=== PATIENT | female | born 1985 | race Caucasian/White ===

== ENCOUNTER 2022-04-15 19:13 | Outpatient (CLI) | payer OTHER, BC, SELFPAY ==
--- OUTSIDE RECORDS SUMMARY | 2022-05-01 11:58 | XMS_ITS | Clinical Summary ---
:1985 Author Organization [facility] [place] [address] Care Team Providers Name Role Phone Margo Mcdowell Primary Care Provider Allergies No known active [...] Orders Only Scanner <No scans attac hed> from Last 3 Months Immunizations Name Administration [...] SAB Ectopic Multiple Living Live Births 1 Date Outcome GA Total Labor/2nd/3rd Weight [...] 01/17/2022 9:19 AM CDT Plan of Treatment Upcoming Encounters Date Type Specialty Care Team Description 05/08/2022 Preop Visit Andreia Da Silva Ma, PA [address] [id number] (Wo rk) Health Maintenance Due Date Last Done Comments [...] wt on same day) for 01/17/2023 01/17/2022, 10/01/2020, age 18+ 03/31/2020, Additional history exists Tdap [...] Type Group [employer] OF [id number] 2018-Present [address] [address] [place] [address] Care Teams Strategic Debriefing Officer Relationship Specialty Start Date End Date Margo Mcdowell DO PCP - General Family Practice 08/10/[address] [place] [address]
== END 2022-04-15 19:14 | disposition home or self-care (01) ==
LOC: AMB 05-01 11:56
PROVIDERS: Visit Provider Emergency Medicine Emergency Medical Services
DX: S49.92XA Unspecified injury of left shoulder and upper arm, initial encounter (principal); S29.9XXA Unspecified injury of thorax, initial encounter; V59.49XA Driver of pick-up truck or van injured in collision with other motor vehicles in traffic accident, initial encounter; Y92.415 Exit ramp or entrance ramp of street or highway as the place of occurrence of the external cause
CPT/HCPCS: A0998

== ENCOUNTER 2022-04-15 19:47 | Emergency (ER) | payer OTHER, BC, SELFPAY ==
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
[2022-04-15 20:03] VITALS: BP 137/90; PULSE 99; RESP 16; TEMP 36.6; O2SAT 95; BMI 43.9
--- OUTSIDE RECORDS SUMMARY | 2022-04-15 20:28 | XMS_ITS | Clinical Summary ---
:1985 Author Organization [facility] [place] [address] Care Team Providers Name Role Phone Margo Mcdowell DO Primary Care Provider Allergies No known active allergies Medications Medication Sig Dispensed Refills Start Date End Date Status SUMAtriptan (IMITREX) Take 1 tablet at 12 Tablet 5 01/17/2022 Active 50 mg the first sign of tabletIndications: a headache. May Migraine with aura, repeat every 2 not intractable, hours for a without status maximum of 4 doses migrainosus in 24 hours (max 200 mg/24 hours) Active Problems Problem Noted Date Migraine with aura, not intractable, without status mi grainosus 01/17/2022 Body mass index (BMI) of 50.0 to 59.9 in adult 020 Viral warts, unspecified 10/25/2010 Vitamin D deficiency 03/29/2010 Resolved Problems Problem Noted Date Resolved Date Supervision of normal first 04/26/2010 Encounters Date Type Specialty Care Team Description 01/29/2022 Orders Only Scanner <No scans attac hed> 01/25/2022 Telephone Andreia Da Silva PA Prio r Authorization (semaglutide (O ZEMPIC) 2 mg/1.5 mL (0.25 mg or 0.5mg doses) pen ORA ED) 01/19/2022 Telephone Andreia Da Silva PA Prio r Authorization (SUMAtriptan (I MITREX) 50 mg tablet NOT NEED ED) 01/19/2022 Telephone Margo Mcdowell DO Prio r Authorization (Imitrex) 01/17/2022 Office Visit Andreia Da Silva PA Cons ult (Discuss options-wants a tubal/ablation/ hysterectomy- done having kid s and periods are heavy-possi ble referral) 01/17/2022 Telephone Margo Mcdowell DO Refi ll Request; [facility] 01/17/2022 Refill Margo Mcdowell DO Refi ll Request 01/17/2022 Travel from Last 3 Months Immunizations Name Administration Dates Next Due Hepatitis B, Unspecified 11/16/1998, 08/25/1998, 06/21/1998 Influenza, IIV3 (Age >=3 years) 06/01/2013 Influenza, IIV4 05/25/2019 Td (Age >=7 Years) 01/27/2005 Tdap 07/15/2012 Family History Medical History Relation Name Comments Good Health Brother Good Health Father Migraines Mother Heart Disease No Family History Relation Name Status Comments Brother Father Mother Social History Tobacco Use Types Packs/Day Years Used Date Former Smoker Quit: 03/28/20 10 Smokeless Tobacco: Never Used Tobacco Cessation: Counseling Given: Yes Alcohol Use Standard Drinks/Week Comments Yes 0 (1 standard drink = 0.6 oz pure alcoho l) occ Alcohol Habits Answer Date Recorded How often do you have a drink containing alcohol? Not asked How many drinks containing alcohol do you have on a typical Not asked day when you are drinking? How often do you have six or more drinks on one occasion? No t asked Comment: occ 05/06/2018 Sex Assigned at Date Recorded Not on file Obstetrics History Para Term AB IAB SAB Ectopic Multiple Living Live Births 1 1 1 1 1 Date Outcome GA Total Labor/2nd/3rd Weight Sex Delivery Anes PTL Yolanda A 1 A5 Name Clin Labor Term 41w Roxy Jacen 0d ng t Last Filed Vital Signs Vital Sign Reading Time Taken Comments Blood Pressure 126/82 01/17/2022 9:19 AM CDT Pulse 98 01/17/2022 9:19 AM CDT Temperature 36.7 ??C (98 ??F) 05/01/2019 8:06 AM CDT Respiratory Rate 18 01/09/2007 10:00 AM CDT Oxygen Saturation 100% 01/17/2022 9:19 AM CDT Inhaled Oxygen Concentration - - Weight 135.2 kg (298 lb) 01/17/2022 9:19 AM CDT Height 172.7 cm (5' 8) 01/17/2022 9:19 AM CDT Body Mass Index 45.31 01/17/2022 9:19 AM CDT Plan of Treatment Health Maintenance Due Date Last Done Comments COVID-19 vaccine series (#1) 1985 Hepatitis C screening for age 0803/22/2005 18-79 Depression screening for age 12+ 03/29/2022 03/29/2021, , 03/31/2020, Additional history exists Influenza for age 9-49 04/12/2022 05/25/2019, 06/01/2013 Tetanus booster 07/15/2022 07/15/2012, 01/27/2005 Pap test for age 21-65 10/06/2022 10/06/2019, 10/06/2019, 01/18/2011, Additional history exists BMI (ht and wt on same day) for 01/17/2023 01/17/2022, 01/2020, age 18+ 03/31/2020, Additional history exists Tdap Completed 07/15/2012 Procedures Procedure Name Priority Date/Time Associated Diagnosis Comme nts SCAN-ULTRASOUND 01/29/2022 12:00 AM Resul ts for this REPORT CDT procedure are i n the results section. from Last 3 Months Results SCAN-ULTRASOUND REPORT (01/29/2022 12:00 AM CDT) Narrative This result has an attachment that is no t available. Scanner OTHER from Last 3 Months Insurance Payer Benefit Plan / Subscriber ID Effective Dates Phone Addre ss Type Group [employer] OF [id number] 2018-Present [address] [address] [place] [address] Care Teams Pull Socket Assembler Relationship Specialty Start Date End Date Margo Mcdowell, PCP - General Family Practice 08/10/13 [address] [place] [address]
[2022-04-15] MEDS: IBUPROFEN 400 MG TABLET 600 MG PO (20:30)
[2022-04-15 20:39] LABS: Chloride* 103 mmol/L (96-114)
[2022-04-15 20:40] LABS: Potassium* 3.7 mmol/L (3.6-5.1); Sodium* 138 mmol/L (135-149)
[2022-04-15 20:42] LABS: Creatinine* 0.8 mg/dL (0.5-1.5); Est. Creatinine Clearance* 95.45; Estimated Glomerular Filt Rate 98 ml/min
[2022-04-15 20:43] LABS: Blood Urea Nitrogen* 15 mg/dL (5-24); Calcium* 8.9 mg/dL (8.4-10.6); Carbon Dioxide* 27 mmol/L (20-32); Glucose* 101 mg/dL (60-115); Magnesium* 1.8 mg/dL (1.5-2.6)
[2022-04-15 20:56] LABS: Troponin I* < 0.01 ng/mL (0.01-0.04)
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
[2022-04-15 22:24] VITALS: PULSE 98
== END 2022-04-15 22:24 | disposition home or self-care (01) ==
PROVIDERS: Emergency Provider Family Medicine
DX: S29.012A Strain of muscle and tendon of back wall of thorax, initial encounter (principal); S20.219A Contusion of unspecified front wall of thorax, initial encounter; V43.52XA Car driver injured in collision with other type car in traffic accident, initial encounter; I49.3 Ventricular premature depolarization
CPT/HCPCS: 36415; 71046; 80048; 83735; 84484; 93005; 99284; 99285; A9270

== ENCOUNTER 2022-05-15 09:34 | Day surgery (SDC) | payer BC, SELFPAY ==
[2022-05-15] VITALS (13 sets, daily range): BP systolic 94–122; BP diastolic 64–86; PULSE 63–124; RESP 16–18; TEMP 36.4–36.6; O2SAT 92–99; BMI 48.3
[2022-05-15] MEDS: LACTATED RINGERS 1000 ML 1,000 ML 100 ML IV ×2 (09:30→12:30)
[2022-05-15 10:10] LABS: Hemoglobin* 14.3 gm/dL (12.0-16.0)
[2022-05-15 10:12] LABS: Ur HCG Qualitative* Negative (Negative)
--- NOTE | 2022-05-15 11:02 | P.PCN_ITS ---
Procedure Note Time Seen by Provider: 11:02 Date Seen: 05/15/22 Date of procedure: 05/15/22 Will [facility] bill your pro fee for this procedure?: Yes Procedure Description: Preoperative diagnosis: 37 yo * Menorrhagia * Undesired fertility Postoperative diagnosis: Same. Procedure: Hysteroscopy, dilation and curettage, endometrial ablation. Laparoscopic bilateral salpingectomy Anesthesia: General endotracheal and paracervical block. Surgeon: Perlita Grady MD Assist: Lore Aly MD for laparoscopic portion of the procedure. Estimated blood loss: [] mL IV Fluid: [] mL Specimen: Endometrial curettings and bilateral fallopian tubes, to pathology. Findings: On exam under anesthesia: The cervix and vagina appear normal. The uterus was [] position, approximately [] week size, mobile and without masses or nodularity palpable. Adnexa were without mass or fullness palpable bilaterally. On hysteroscopy: []. No other abnormalities noted. The uterus sounded to [] cm. Cervical length [] cm. Cavity length: []. Procedure: Marie was taken to the operating room where conscious sedation was found to be adequate. She was placed in a dorsal lithotomy position and an exam under anesthesia was performed with the findings stated above. She was then prepped and draped in a normal sterile manner. An a bivalve is sterile speculum was placed in the vaginal canal. A paracervical block was placed using 0.5% Marcaine: 5 mL were injected at the 4 and 8 o'clock positions on the cervix. A long Allis clamp was placed on the anterior lip of the cervix. The cervix was then dilated to Hegar 6. Uterus sounded to [] cm. The cervix measured [] cm. There for the cavity length was [] cm. The Truclear hysteroscope was advanced into the uterus. A diagnostic hysteroscopy performed with normal saline as the insufflation medium. Findings are stated above. The Truclear incisor was then advanced into the camera. And the curettage performed with this incisor. The curettage took approximately [] min. The cavity appeared normal once the curettage was performed completed. The hysteroscope was removed. The cervix was then dilated to Hegar 8. The Lesly device was advanced into the uterus. The cavity check was completed and the ablation took place over 2 min. . The Lesly was removed, the hysteroscope readvanced to document ablation of the entire cavity. The hysteroscope was then removed. The Allis clamp removed from the anterior lip of the cervix. [] was used to obtain hemostasis Attention was then directed to performing the laparoscopic portion of the procedure: A paracervical block was placed using 0.5% Marcaine: 5 mL were injected at the 4 and 8 o'clock positions on the cervix. All incisions were injected with 0.5% Marcaine prior to incision. A vertical 5 mm infraumbilical, incision, was made and a 5 mm trocar placed under direct visualization with the laparoscope. The abdomen was then insufflated with carbon dioxide gas to a pressure of 15 mm of mercury. To bilateral lower quadrant trocars were then placed under direct visualization. Both were placed approximately 3-4 finger breaths medial to the ischial crests. The right trocar was 5 mm the left trocar was 11 mm. A diagnostic laparoscopy was then performed with findings stated above. The left fallopian tube was grasped with a sliding grasper. The left fallopian tube was removed from the broad ligament using the Halo dissecting forceps starting at the fimbriated end of the tube. Sequential pedicles were then formed to the level of the cornua. The tube was then removed at the cornua and removed from the abdomen through the 11 mm port. The right fallopian tube was removed in a similar manner. Excellent hemostasis was noted of all pedicles. The trocars were then removed under direct visualization. The CO2 gas was allowed to escape the infraumbilical port prior to its removal. All incisions were reapproximated using 4-0 Monocryl in a running subcuticular manner. Exofin skin adhesive was then applied and adhesive dressings applied over each incision. The uterine manipulator and March catheter were removed. The patient tolerated this procedure well. Sponge, lap and instrument counts were correct x2 at the end of the procedure and the patient was taken to the recovery area in stable condition. Patient received 30 mg of Toradol IV and 3 gm of Ancef prior to the procedure. Surgeon: Perlita Grady MD
[2022-05-15] MEDS: CEFAZOLIN 1 GM inj 3 GM IVP (11:20)
[2022-05-15] MEDS: BUPIVACAINE 0.5% 30 ML INJECTION (12:10)
--- NOTE | 2022-05-15 12:52 | W.PM.GYNPROC ---
Procedure Note Date Seen: 05/15/22 Procedure Details: PREOPERATIVE DIAGNOSIS: 1. Menorrhagia. 2. Undesired fertility. POSTOPERATIVE DIAGNOSIS: 1. Menorrhagia. 2. Undesired fertility. 3. Endometriosis. 4. Pelvic adhesions. PROCEDURE: Laparoscopy, bilateral salpingectomies, lysis of adhesions, biopsy and fulguration of endometriosis. SURGEON: Miguel A. RADIOGRAPHER TECHNOLOGIST: Sheeba ANESTHESIA: General endotracheal COMPLICATIONS: None ESTIMATED BLOOD LOSS: See operative report by Dr. Grady. FINDINGS: PROCEDURE NOTE: Please see the operative report by Dr. Grady for full details of the procedure. I was asked to assist with the laparoscopic portion of the procedure (after she finished hysteroscopy, D&C, endometrial ablation). I was scrubbed in for the entire laparoscopic procedure. I provided assistance with laparoscopic port placement, lysis of adhesions, visualization and retraction, and with the bilateral salpingectomies and biopsy and fulguration from the right side. The procedure was difficult due to patient body habitus (BMI 48 kg/m2).
--- NOTE | 2022-05-15 13:01 | PM.PROC ---
Procedure Note Date Seen: 05/15/22 Date of procedure: 05/15/22 Will [facility] bill your pro fee for this procedure?: Yes Procedure: Preoperative diagnosis: 37yo with:1. menorrhagia. 2. Undesired fertility. Postoperative diagnosis: Same: Suspected endometrial polyps, ventral wall hernia, stage 1 endometriosis. Procedure: 1. Hysteroscopy, dilation and curettage, endometrial ablation. 2. Laparoscopy: Lysis of adhesions, bilateral salpingectomy, right uterosacral ligament peritoneal biopsy, fulguration of endometriosis. Anesthesia: General endotracheal and local. Surgeon: Perlita Grady MD Assist: Lore Aly MD for the laparoscopic portion the procedure. Estimated blood loss: mL IV Fluid: mL Specimen: Endometrial curettings, sent to path. Findings: On exam under anesthesia: The cervix and vagina appear normal. The uterus was anteverted position, approximately 12 week size, mobile and without masses or nodularity palpable. Adnexa were without mass or fullness palpable bilaterally. On hysteroscopy: multiple polypoid masses with otherwise normal endometrium. No other abnormalities noted. The uterus sounded to 11.5 cm. Cervical length 5 cm. Cavity length: 6.5 cm The round ligament was adherent to the anterior abdominal wall just left of the umbilicus in a small ventral wall hernia. There is also small amount of omentum within this ventral abdominal wall hernia. The bladder was adherent to the anterior lower uterine segment with multiple thin adhesions. There were 5 endometriosis implants in the posterior cul-de-sac. Three on the right uterosacral ligament and to on the left uterosacral ligament. One of the right utero-sacra implants was biopsied. The liver edge appeared normal. The gallbladder was was surgically absent. The appendix was not visualized. Procedure: Marie was taken to the operating room where conscious sedation was found to be adequate. She was placed in a dorsal lithotomy position and an exam under anesthesia was performed with the findings stated above. She was then prepped and draped in a normal sterile manner. An a bivalve is sterile speculum was placed in the vaginal canal. A paracervical block was placed using 0.5% Marcaine: 5 mL were injected at the 4 and 8 o'clock positions on the cervix. A single toothed tenaculum was placed on the anterior lip of the cervix. The cervix was then dilated to Hegar 6. Uterus sounded to 11.5 cm. The cervix measured 5 cm. There for the cavity length was 6.5 cm. The Truclear hysteroscope was advanced into the uterus. A diagnostic hysteroscopy performed with normal saline as the insufflation medium. Findings are stated above. The Truclear incisor was then advanced into the camera. And the curettage performed with this incisor. The curettage took approximately 3min. The cavity appeared normal once the curettage was performed completed. Saline was used for the insufflation medium. Total saline used: 1175 mL. Deficit: 375 mL The hysteroscope was removed. The cervix was then dilated to Hegar 8. The Lesly device was advanced into the uterus. The cavity check was completed and the ablation took place over 2 min. Patient received 30 mg of Toradol IV and gm of Ancef prior to the procedure. The Lesly was removed, the hysteroscope readvanced to document ablation of the entire cavity. The hysteroscope was then removed. A [employer] uterine manipulator was then placed. Attention was then turned to performing the laparoscopic portion of the procedure. All incisions were injected with 0.5% Marcaine prior to incision. A vertical 5 mm infraumbilical, incision, was made and a 5 mm trocar placed under direct visualization with the laparoscope. The abdomen was then insufflated with carbon dioxide gas to a pressure of 15 mm of mercury. To bilateral lower quadrant trocars were then placed under direct visualization. Both were placed approximately 3-4 finger breaths medial to the ischial crests. The right trocar was 5 mm the left trocar was 11 mm. A diagnostic laparoscopy was then performed with findings stated above. The lateral edge of the round ligament was cold superior and in to the small, abdominal ventral wall hernia that was left of the umbilicus. The camera was placed in the lower right trocar to visualize adhesions of the round ligament and omentum that were going into the hernia. These adhesions were taken down with the bipolar LigaSure forceps. No bleeding was noted. Attention was then return to the pelvis where the thin adhesions of the bladder to the anterior uterine wall were removed using the LigaSure forceps. Attention was then turned to performing the bilateral salpingectomy. Before the salpingectomy could be performed a midline 5 mm trocar was placed to aid and holding the uterus anteriorly. The left fallopian tube was grasped with a sliding grasper. The left fallopian tube was removed from the broad ligament using the Halo dissecting forceps starting at the fimbriated end of the tube. Sequential pedicles were then formed to the level of the cornua. The tube was then removed at the cornua and removed from the abdomen through the 11 mm port. The right fallopian tube was removed in a similar manner. Excellent hemostasis was noted of all pedicles. The trocars were then removed under direct visualization. Attention was then turned to the endometriosis implants in the posterior cul-de-sac. 1 of the endometriosis implants on the right uterosacral ligament was grasped with a sliding forceps an the implant removed using laparoscopic scissors. The remaining endometriosis implants were cauterized with bipolar cautery via a [place] laparoscopic grasper. The pelvis was irrigated with a small amount of fluid and hemostasis noted. The left lower quadrant trocar was removed and the fascia reapproximated using the Nitin -Thomasen fascial closure device. The remaining trocars were removed under direct visualization. The CO2 gas was allowed to escape the infraumbilical port prior to its removal. All incisions were reapproximated using 4-0 Monocryl in a running subcuticular manner. Exofin skin adhesive was then applied and adhesive dressings applied over each incision. The Hul[employer] uterine manipulator was removed. Nothing was needed to obtain hemostasis on the cervix. The March catheter was removed. The patient tolerated this procedure well. Sponge, lap and instrument counts were correct x2 at the end of the procedure and the patient was taken to the recovery area in stable condition. The patient received 30 mg IV Toradol and 3 g IV Ancef prior to the start of the procedure. Surgeon: Perlita Grady MD
[2022-05-15] MEDS: fentaNYL 100 MCG/2 ML inj 50 MCG IVP ×2 (13:07→13:26)
--- NOTE | 2022-05-15 13:11 | W.ANESCHARGE ---
Anesthesia Charges Start Date/Time Anesthesia Start Date: 05/15/22 Anesthesia Start Time: 11:09 Stop Date/Time Anesthesia Stop Date: 05/15/22 Anesthesia Stop Time: 13:05 Summary Emergency: No
--- NOTE | 2022-05-15 13:30 | W.ANESCHARGE ---
Anesthesia Charges Start Date/Time Anesthesia Start Date: 05/15/22 Anesthesia Start Time: 11:09 Stop Date/Time Anesthesia Stop Date: 05/15/22 Anesthesia Stop Time: 13:05 Summary Emergency: No
[2022-05-15] MEDS: ACETAMINOPHEN 500 MG TABLET 1000 MG PO (13:51)
== END 2022-05-15 14:45 | disposition home or self-care (01) ==
PROVIDERS: PCP Physician Assistant; Visit Provider Obstetrics & Gynecology
PROC: 0UF98ZZ Fragmentation in Uterus, Via Natural or Artificial Opening Endoscopic (ICD-10-PCS; CPT 58661; principal; 2022-05-15 10:30)
PROC: (CPT 58661; 2022-05-15 10:30)
DX: N92.0 Excessive and frequent menstruation with regular cycle (principal); N80.00 Endometriosis of the uterus, unspecified; N84.0 Polyp of corpus uteri; Z30.2 Encounter for sterilization; Z68.42 Body mass index [BMI] 45.0-49.9, adult; K43.9 Ventral hernia without obstruction or gangrene
CPT/HCPCS: 58661; 58563; 58662; 00840; 00851; 36415; 81025; 85018; 86850; 86900; 86901; 88302; 88305; A9270; J0330; J0690; J1100; J1170; J1885; J2250; J2405; J2704; J2765; J3010; J3490; J7120